=== PATIENT | female | born 1985 | race Caucasian/White ===

== ENCOUNTER 2016-11-27 21:47 | Emergency (ER) | payer BC ==
[2016-11-27 21:57] VITALS: BP 139/63
--- NOTE | 2016-11-27 22:40 | PHYS DOC ---
Past Medical History Past Medical History: No Pertinent History Past Surgical History: No Surgical History Additional Information: quit one year ago Alcohol Use: None Drug Use: None Adult General Chief Complaint Chief Complaint: KNEE INJURY [facility] HPI Patient is a 31 year old female presents emergency department stating that she is having right knee pain and discomfort. Patient states that she was trying to clean her home last night when she slipped and fell. She states that her knee went one way. She states that anytime she tries to bend her knee or move her leg she feels as though the kneecap is moving. She states that she is taken hydrocodone 2 for pain and discomfort when last night when this morning. She denies any numbness or tingling down into the lower extremity. Patient states that she is having increased pain and discomfort with ambulation. She states her pain is located just above the knee As well as around the kneecap area. She has no tenderness noted in the posterior part of the knee. Patient with no tenderness noted on the lateral or the medial side of the knee. Patient's knee appears to be slightly red, although no bruising or discoloration noted. Review of Systems Review of Systems Constitutional: Denies fever or chills [] Eyes: Denies change in visual acuity, redness, or eye pain [] HENT: Denies nasal congestion or sore throat [] Respiratory: Denies cough or shortness of breath [] Cardiovascular: No additional information not addressed in HPI [] GI: Denies abdominal pain, nausea, vomiting, bloody stools or diarrhea [] : Denies dysuria or hematuria [] Musculoskeletal: Denies back pain. Complaint of right knee pain and discomfort.] Integument: Denies rash or skin lesions [] Neurologic: Denies headache, focal weakness or sensory changes [] Endocrine: Denies polyuria or polydipsia [] Physical Exam Physical Exam Constitutional: Well developed, well nourished, no acute distress, non-toxic appearance. [] HENT: Normocephalic, atraumatic, bilateral external ears normal, oropharynx moist, no oral exudates, nose normal. [] Eyes: PERRLA, EOMI, conjunctiva normal, no discharge. [] Neck: Normal range of motion, no tenderness, supple, no stridor. [] Cardiovascular:Heart rate regular rhythm Lungs & Thorax: No respiratory distress noted Skin: Warm, dry, no erythema, no rash. [] Back: No tenderness Extremities: Right knee tenderness noted above the knee And above the knee itself. Patient with no tenderness noted on the posterior part of the knee. Patient with swelling noted above the knee and over the kneecap area. Slight redness noted no bruising or discoloration noted., no cyanosis, no clubbing, ROM intact, no edema. [] Neurologic: Alert and oriented X 3, normal motor function, normal sensory function, no focal deficits noted. [] Psychologic: Affect normal, judgement normal, mood normal. [] Current Patient Data Vital Signs Vital Signs Date Time Temp Pulse Resp B/P (MAP) Pulse Ox O2 Delivery O2 Flow Rate FiO2 11/27/16 21:57 98.0 79 18 99 Room Air 98.0 EKG EKG [] Radiology/Procedures Radiology/Procedures [] Course & Med Decision Making Course & Med Decision Making Pertinent Labs and Imaging studies reviewed. (See chart for details) X-rays were negative for any bony abnormalities per Dr Trejo. Patient will be placed in a knee immobilizer and will be discharged home. We'll provide her with a few hydrocodone for severe pain and discomfort in which we instructed her will cause drowsiness do not take any be alert and oriented. Patient is breast-feeding also spoke with patient regards to this medication causing drowsiness for the infant. Patient was also recommended to use ibuprofen 800 mg every 8 hours. Ice packs on 20 minutes off 20 minutes several times a day. Elevation as much as possible. Patient will be discharged home in stable condition signs and symptoms to return back to emergency department as been provided. Patient will also be provided with orthopedic name and number to follow up with. [] Dragon Disclaimer Dragon Disclaimer This electronic medical record was generated, in whole or in part, using a voice recognition dictation system. Departure Departure Impression: Primary Impression: Right knee pain Disposition: 01 HOME, SELF-CARE Condition: STABLE Referrals: NO PCP (PCP) NENA MCGEE MD Patient Instructions: Knee Immobilizer, [id number], Knee Pain, [id number], RICE - Routine Care for Injuries, [id number] Additional Instructions: Your x-rays were negative for any bony abnormalities. Wear the knee immobilizer until you follow-up with orthopedic. Ibuprofen 800 mg every 8 hours with food stop taking if you develop upset stomach. Hydrocodone will cause drowsiness do not take any be alert and oriented. Hydrocodone will also cause drowsiness and you are breast-feeding baby. Ice packs on 20 minutes off 20 minutes several times a day. Elevation as much as possible. Follow-up with orthopedic within the next week. Return back to emergency prior signs symptoms of become worse. Scripts Hydrocodone/Apap 5-325 (NORCO 5-325 TABLET) 1 Each Tablet 1 TAB PO PRN Q6HRS Y for PAIN, #10 TAB 0 Refills Prov: PAULINE SMITH APRN 11/27/16 PAULINE SMITH APRN Nov 27, 2016 22:39
[2016-11-27] MEDS ORDERED: HYDR-971 PO (22:54)
--- NOTE | 2016-11-28 07:59 | RAD ---
Right knee, 3 views, 11/27/2016: History: Injury, fall No fracture or dislocation is identified. There is soft tissue fullness in the suprapatellar bursa suggesting a joint effusion. IMPRESSION: 1. No acute bony abnormality is detected. 2. Moderate sized knee joint effusion.
== END 2016-11-27 23:08 | disposition home or self-care (01) ==
LOC: ER 21:47
DX: M25.561 Pain in right knee (principal)
CPT/HCPCS: 29505; 73562; 99284

== ENCOUNTER → 2017-01-10 | Outpatient (CLI) | payer BC ==
[~2017-01-10] MED LIST: HYDR-971 PO
--- NOTE | 2017-01-10 11:41 | RAD ---
MR of the right knee Indication: Anterior pain after a fall one month ago. Technique: The standard multiplanar sequences are obtained. Findings: Medial meniscus:Intact. Lateral meniscus: There is some signal at the posterior horn, contiguous with the Wrisberg attachment is slightly more prominent than is usual. There is also some distortion of the meniscus with some signal, greater at the body and anterior horn. Overall, a tear is suspected. Anterior cruciate ligament: Intact Posterior cruciate ligament: Intact Medial collateral ligament: Intact. Iliotibial band: Intact. Posterolateral structures: Fibular collateral ligament, biceps tendon and popliteus tendon are intact. Extensor mechanism: Intact. Fluid: Large joint effusion with some internal complex signal, likely some blood product. Articular cartilage -patellofemoral joint:Intact -medial compartment: No acute defect. -lateral compartment: There is a shallow osteochondral defect of the posterior weightbearing through nonweightbearing lateral femoral condyle measures 19 mm AP diameter by about 18 mm wide. The margin with the subjacent [place] femur is fairly well-defined with evidence of some cortication suggesting that this is an old displaced fracture. There is a bone marrow edema of the subjacent femur. There is a small curvilinear bone signal structure located medial to this defect and entering the intracondylar notch likely the displaced osteochondral fragment. In addition, there is some linear T2 signal located just lateral to the lateral femoral condyle compatible with a separate loose displaced articular cartilage fragment measuring 9 mm long axis, series 8, image 12. Bones: No evidence of an acute fracture. Soft tissue: Soft tissue edema Impression: 1. Osteochondral fracture of the posterior aspect of the lateral femoral condyle, by appearance could correspond with the stated age of injury one month ago. The osteochondral fragment is slightly displaced medially, partially entering the intracondylar notch. There is also a separate loose articular cartilage fragment located lateral to the lateral femoral condyle. 2. Abnormal signal with some deformity within the lateral meniscus, as well as some prominent signal contiguous with the Wrisberg attachment. Findings are suspicious for tear. Electronically signed by: Mj Troncoso MD (01/10/2017 11:37 AM) [id number]
== END | disposition home or self-care (01) ==
LOC: MRI 10:00
PROVIDERS: ATTEND Nurse Practitioner Gerontology
DX: S89.91XD Unspecified injury of right lower leg, subsequent encounter (principal); X58.XXXD Exposure to other specified factors, subsequent encounter
CPT/HCPCS: 73721